=== PATIENT | female | born 1935 | race Caucasian/White ===

== ENCOUNTER 2016-07-08 18:58 | Emergency (ER) | payer MEDICARE, OTHER, MEDICAID ==
[~2016-07-08] VITALS: Ht 154.9 cm; Wt 76.3 kg
[~2016-07-08 18:58] MED LIST: ACET325T38 PO; APIX5TAB PO; ASPI-586 PO; BISA10SU6 RC; CITA20TA12 PO; CYAN100072 PO; DGX.125T PO; DILT120T11 PO; FURO-124 PO; LSNP20T PO; MAGN400O7 PO; METO50TA7 PO; POLY17PO6 PO; QUET50TA3 PO; RISP0.5T16 PO; [UNRECOGNIZED DRUG - CODE] OP
[2016-07-08 20:12] LABS: BASOPHILS % (AUTO) 1 % (0-2); EOSINOPHILS # (AUTO) 0.3 10^3uL; EOSINOPHILS % (AUTO) 4 % (0-4); LYMPHOCYTES # (AUTO) 2.8 X10^3; MEAN CORPUSCULAR HEMOGLOBIN 31.3 PG (26.0-34.0); MEAN CORPUSCULAR HGB CONC 33.5 g/dL (31.0-37.0); MEAN CORPUSCULAR VOLUME 93 FL (80-100); MEAN PLATELET VOLUME 10.7 FL (6.0-9.5); MONOCYTES # (AUTO) 0.9 X10^3; MONOCYTES % (AUTO) 11 % (3-11); NEUTROPHILS # (AUTO) 4.5 X10^3; NEUTROPHILS % (AUTO) 52 % (51-67); PLATELET COUNT 197 10^3uL (150-450); WHITE BLOOD COUNT 8.62 10^3uL (4.0-11.0)
[2016-07-08 20:16] LABS: BILIRUBIN,URINE Negative (Negative); CLARITY,URINE Turbid; COLOR,URINE Yellow; GLUCOSE, URINE (UA) Negative (Negative); LEUKOCYTE ESTERASE ,URINE 3+ (Negative); PH,URINE 6.5 (5.0 - 8.0); UROBILINOGEN,URINE 0.2 mg/dL (0.2-1.0)
[2016-07-08 20:36] LABS: URINE CENTRIFUGED VOLUME 12 mL
[2016-07-08 20:40] LABS: ALBUMIN 3.8 g/dL (3.4-5.0); ANION GAP 17.9 MEQ/L (3-15); CALCULATED IONIZED CALCIUM 4.2 mg/dL (3.8-4.6)
[2016-07-08] MEDS ORDERED: LEVOFLOXACIN 250 MG TAB (LEVAQUIN) PO ONE (21:25)
[2016-07-08] MEDS ORDERED: LEVO500T16 PO (21:29)
[2016-07-08 23:23] VITALS: BP 134/70
--- NOTE | 2016-07-09 07:40 | Diagnostic Imaging Report ---
CLINICAL INDICATION: Patient elevated right with weakness, altered mental status. EXAM: Portable chest x-ray upright view. COMPARISONS: Chest x-ray dated 07/16/2015. FINDINGS: There is interval progression of discoid opacities involving the right lung base, lingula, and medial left lung base concerning for atelectasis. There is interval elevation right hemidiaphragm. Pulmonary vasculature and cardiac silhouette is within normal limits. There is levoscoliosis of lumbar spine noted. There are postop changes to the chest with sternotomy wires and valvuloplasty changes. There are surgical rita again seen overlying right upper abdomen. IMPRESSION: 1: There is interval bibasilar atelectasis (right side more than the left) with elevation of the right hemidiaphragm. 2: The remainder of this exam shows no significant interval change compared to the prior study of comparison. Dictated by: Dictated on workstation # [id number]
== END 2016-07-08 23:34 | disposition home or self-care (01) ==
LOC: ED 19:01
DX: N39.0 Urinary tract infection, site not specified (principal); R41.82 Altered mental status, unspecified; Z79.899 Other long term (current) drug therapy
CPT/HCPCS: 36415; 51701; 71010; 80053; 80162; 81003; 81015; 84443; 84484; 85025; 87077; 87088; 87186; 93005; 99285; A9270; 93010